=== PATIENT | female | born 1945 | race Caucasian/White ===

== ENCOUNTER → 2021-02-11 | Outpatient (CLI) | payer MEDICARE, OTHER ==
[~2021-02-11] MED LIST: CALC500T31 PO; CALTTAB6 PO; CYCL10TA3 PO; DILA100C PO; DULO1CAP4 PO; ERGO500029 PO; FAMO1TAB11 PO; FLUO20CA22 PO; FURO40TA2 PO; IRON27TA2 PO; LANS30CA PO; LEVO88TA3 PO; LIDO1DIS2 TD; LYRI75CA PO; MM S100C PO; MULTTAB4 PO; OXYC1TAB23 PO; OXYC5TAB2 PO; PANT40TA29 PO; PHEN32.4 PO; PHEN32.44 PO; REFR0.5D8 OP; REFR0.5D8 OU; ROPI1TAB3 PO; SUCR1TAB56 PO; SYNT100T PO; VIT250TA PO
== END ==
LOC: M LABSMTC 09:59
PROVIDERS: ATTEND Anesthesiology
DX: Z01.812 Encounter for preprocedural laboratory examination (principal)

== ENCOUNTER 2021-02-16 06:41 | Day surgery (SDC) | payer MEDICARE, OTHER ==
[~2021-02-16] VITALS: Ht 160 cm; Wt 104.8 kg
[~2021-02-16 06:41] MED LIST changes: +NS 1,000 ML IV ONE
[2021-02-16] MEDS ORDERED: propofoL 200 MG/20 ML VIAL As Ordered ONE (07:01)
[2021-02-16] MEDS ORDERED: LIDOCAINE 2% 100MG/5ML SDV (FOR ANES.) As Ordered ONE (07:01)
--- NOTE | 2021-02-16 07:50 | ROOR ---
Patient Name: Michelle Guerrero Procedure Date: 02/16/2021 7:34 AM Date of : 1945 Age: 75 Room: [facility] Gender: Female Note Status: Finalized Procedure: Upper Endoscopy + Biopsies Indications: Heartburn, Exclusion of Burroughs's esophagus Providers: Gerald Hawkins MD Referring MD: Wilda Paredes MD Requesting Provider: Medicines: Monitored Anesthesia Care Complications: No immediate complications. Procedure: Pre-Anesthesia Assessment: - The heart rate, respiratory rate, oxygen saturations, blood pressure, adequacy of pulmonary ventilation, and response to care were monitored throughout the procedure. The Endoscope was introduced through the mouth, and advanced to the second part of duodenum. The upper GI endoscopy was accomplished without difficulty. The patient tolerated the procedure well. Findings: The Z-line was variable and was found 40 cm from the incisors. Multiple biopsies were obtained with cold forceps for evaluation to rule out Burroughs's Esophagus randomly at the gastroesophageal junction. A small hiatal hernia was present. No other significant abnormalities were identified in a careful examination of the stomach. The exam of the duodenum was otherwise normal. Impression: - Z-line variable, 40 cm from the incisors. - Small hiatal hernia. - Multiple biopsies were obtained at the gastroesophageal junction. - The examination was otherwise normal. Recommendation: - Patient has a contact number available for emergencies. The signs and symptoms of potential delayed complications were discussed with the patient. Return to normal activities tomorrow. Written discharge instructions were provided to the patient. - High fiber diet. - Discharge patient to home. - Continue present medications. - Follow an antireflux regimen. - Await pathology results. - Telephone GI clinic for pathology results in 1 week. - Return to referring physician. - The findings and recommendations were discussed with the patient's family. Procedure Code(s): --- Professional --- 23162, Esophagogastroduodenoscopy, flexible, transoral; with biopsy, single or multiple Diagnosis Code(s): --- Professional --- K22.8, Other specified diseases of esophagus K44.9, Diaphragmatic hernia without obstruction or gangrene R12, Heartburn CPT copyright 2019 [employer]. All rights reserved. The codes documented in this report are preliminary and upon line rider review may be revised to meet current compliance requirements. Gerald Hawkins MD Gerald Hawkins MD 02/16/2021 7:49:30 AM Electronically signed by Gerald Hawkins MD Number of Addenda: 0 Note Initiated On: 02/16/2021 7:34 AM Estimated Blood Loss: Estimated blood loss: none.
[2021-02-16 08:13] VITALS: BP 158/78
== END 2021-02-16 08:16 | disposition home or self-care (01) ==
LOC: M OPP 06:41
PROVIDERS: ATTEND Internal Medicine Gastroenterology
DX: K22.8 Other specified diseases of esophagus (principal); K44.9 Diaphragmatic hernia without obstruction or gangrene; R12 Heartburn; Z79.891 Long term (current) use of opiate analgesic; Z79.899 Other long term (current) drug therapy

== ENCOUNTER 2025-04-10 09:23 | Inpatient (IN) | payer MEDICARE ==
[~2025-04-10] VITALS: Ht 162.6 cm; Wt 100.1 kg
[~2025-04-10 09:23] MED LIST changes: -CALC500T31 PO; +FLUO-365 PO; -FLUO20CA22 PO; -NS 1,000 ML IV ONE; +OYST500T16 PO; -ROPI1TAB3 PO; +ROPI1TAB73 PO
[2025-04-16] MEDS ORDERED: FUROSEMIDE 40 MG TAB PO PRN (12:05)
[2025-04-16] MEDS ORDERED: SIMETHICONE 80MG CHEW TAB PO PRN (12:15)
[2025-04-16] MEDS ORDERED: BISACODYL 10 MG SUPP PR PRN (12:15)
[2025-04-16] MEDS ORDERED: MOM 30 ML SUSPENSION UDC PO PRN (12:15)
[2025-04-16] MEDS ORDERED: MAALOX 30 ML SUSP *UDC PO PRN (12:15)
[2025-04-16] MEDS ORDERED: BISACODYL 5 MG TAB PO PRN (12:15)
[2025-04-16 14:29] VITALS: BP 156/67; TEMP 97; O2SAT 96
[2025-04-16] MEDS ORDERED: ATOR40TA75 PO (14:39)
[2025-04-16] MEDS ORDERED: ELIQ5TAB PO (14:39)
[2025-04-16] MEDS ORDERED: FERR1TAB8 PO (14:42)
[2025-04-16] MEDS ORDERED: PHEN30TA46 PO (14:42)
[2025-04-16] MEDS ORDERED: METO1TAB32 PO (14:43)
[2025-04-16] MEDS ORDERED: ROPI2TAB46 PO (14:47)
[2025-04-16] MEDS ORDERED: ENTR1TAB PO (14:47)
[2025-04-16] MEDS ORDERED: POTA-136 PO (14:49)
[2025-04-16] MEDS ORDERED: ACET1TAB55 PO (14:52)
[2025-04-16] MEDS ORDERED: TRAM50TA2 PO (14:54)
[2025-04-16] MEDS ORDERED: HOME MED LIST COMPLETE! XX SCH (15:00)
[2025-04-16] MEDS ORDERED: PHEN100C PO (16:10)
[2025-04-16] MEDS: PANTOPRAZOLE 40MG TAB PO SCH (17:05)
[2025-04-16] MEDS: traMADol 50 MG TAB PO PRN (17:06)
[2025-04-16 19:25] VITALS: BP 145/68; TEMP 97.5; O2SAT 87
[2025-04-16 19:32] VITALS: O2SAT 86
[2025-04-16 19:33] VITALS: O2SAT 93
[2025-04-16 21:00] VITALS: O2SAT 95
[2025-04-16] MEDS: PREGABALIN 75 MG CAP PO SCH (21:46)
[2025-04-16] MEDS: ENTRESTO 24-26 MG TABLET (SACUBITRIL/VALSARTAN) PO SCH (21:48)
[2025-04-16] MEDS: ATORVASTATIN 20 MG TAB PO SCH (21:48)
[2025-04-16] MEDS: OYSTER SHELL CALCIUM 500 MG TAB PO SCH (21:49)
[2025-04-16] MEDS: SUCRALFATE 1 GM TAB PO SCH (21:49)
[2025-04-16] MEDS: METOPROLOL SUCC. 25 MG *XL* TAB PO SCH (21:49)
[2025-04-16] MEDS: APIXABAN 5 MG TAB PO SCH (21:49)
[2025-04-16] MEDS: FAMOTIDINE 20 MG TAB PO SCH (21:49)
[2025-04-16] MEDS: PHENYTOIN ER 100 MG CAP PO SCH (21:50)
[2025-04-16] MEDS: POLYVINYL ALCOHOL OPHTH SOLN 15ML (LIQUITEARS) OU SCH (21:52)
[2025-04-16] MEDS: DICLOFENAC EPOLAMINE 1.3% PATCH TOP PRN (21:53)
[2025-04-16 22:26] VITALS: O2SAT 96
[2025-04-17 04:00] VITALS: BP 134/63; TEMP 97; O2SAT 96
[2025-04-17 06:20] VITALS: BP 138/63
[2025-04-17] MEDS: FUROSEMIDE 40 MG TAB PO SCH ×2 (06:25→09:32)
[2025-04-17] MEDS: LEVOTHYROXINE 88 MCG TABLET (0.088 MG) PO SCH (06:27)
[2025-04-17 08:27] LABS: BASO # 0.1 10^3/uL (0.0-0.2); BASO % 1.0 % (0.0-1.0); EOS # 0.1 10^3/uL (0.0-0.5); EOS % 1.6 % (0.0-3.0); LYMPH # 1.1 10^3/uL (1.5-5.0); LYMPH % 16.7 % (24.0-44.0); MONO # 0.4 10^3/uL (0.0-0.8); MONO % 6.1 % (2.0-8.0); NEUTROPHILS # 4.9 10^3/uL (1.5-8.5); NEUTROPHILS % 74.0 % (36.0-66.0); PLATELET COUNT, AUTOMATED 371 10^3/uL (150-450)
[2025-04-17 08:50] LABS: ALT/SGPT 17 U/L (7.0-40); AST/SGOT 31 U/L (<34); CALCIUM LEVEL 7.9 MG/DL (8.3-10.6); CARBON DIOXIDE LEVEL 35 MMOL/L (20-31); CHLORIDE LEVEL 99 MMOL/L (98-107); CREATININE FOR GFR 0.59 MG/DL (0.55-1.30); GLOMERULAR FILTRATION RATE > 90.0 (>39); POTASSIUM SERUM 4.3 MMOL/L (3.5-5.1); SODIUM LEVEL 145 MMOL/L (136-145)
[2025-04-17] MEDS ORDERED: POTASSIUM CHLORIDE 10MEQ SR TABLET PO SCH (09:00)
[2025-04-17] MEDS ORDERED: FUROSEMIDE 40 MG TAB PO SCH (09:00)
[2025-04-17] MEDS: DOCUSATE SODIUM 100 MG CAPSULE PO SCH (09:30)
[2025-04-17] MEDS: FERROUS GLUCONATE 324 MG TAB PO SCH (09:31)
[2025-04-17] MEDS: POTASSIUM CHLORIDE 10MEQ SR TABLET PO SCH (09:31)
[2025-04-17 12:08] VITALS: BP 148/63; TEMP 96.9; O2SAT 98
[2025-04-17] MEDS ORDERED: DEXTROSE 50% 50 ML SYRINGE IV PRN (13:50)
[2025-04-17] MEDS ORDERED: GLUCOSE 4 GM CHEW PO PRN (13:50)
[2025-04-17] MEDS ORDERED: GLUCAGON INJ 1 MG VIAL SC PRN (13:50)
[2025-04-17] MEDS: DICLOFENAC EPOLAMINE 1.3% PATCH TOP ONE (16:20)
[2025-04-17 20:00] VITALS: BP 127/58; TEMP 97.9; O2SAT 93
[2025-04-18 04:00] VITALS: BP 117/57; TEMP 97; O2SAT 93
[2025-04-18] MEDS: ACETAMINOPHEN 325 MG TAB PO PRN (07:43)
[2025-04-18] MEDS: POTASSIUM CHLORIDE 10MEQ SR TABLET PO SCH (09:18)
[2025-04-18] MEDS: DICLOFENAC EPOLAMINE 1.3% PATCH TOP SCH (09:19)
[2025-04-18 12:00] VITALS: BP 109/55; TEMP 97.1; O2SAT 96
[2025-04-18 20:00] VITALS: BP 130/58; TEMP 97.1; O2SAT 95
[2025-04-19 04:00] VITALS: BP 126/60; TEMP 97.5; O2SAT 95
[2025-04-19 06:25] LABS: CALCIUM LEVEL 8.0 MG/DL (8.3-10.6); CARBON DIOXIDE LEVEL 36.0 MMOL/L (20-31); CHLORIDE LEVEL 102.0 MMOL/L (98-107); CREATININE FOR GFR 0.67 MG/DL (0.55-1.30); GLOMERULAR FILTRATION RATE 89.4 (>39); POTASSIUM SERUM 3.8 MMOL/L (3.5-5.1); SODIUM LEVEL 146.0 MMOL/L (136-145)
[2025-04-19] MEDS: VITAMIN D 50,000 UNITS CAPSULE (ERGOCALCIFEROL 1.25MG) PO SCH (09:04)
[2025-04-19 09:10] VITALS: BP 130/60; O2SAT 98
[2025-04-19 12:00] VITALS: BP 121/58; TEMP 96.8; O2SAT 100
[2025-04-19 20:00] VITALS: BP 107/52; TEMP 97.8; O2SAT 97
[2025-04-20 04:00] VITALS: BP 113/55; TEMP 97.2; O2SAT 96
[2025-04-20 06:18] LABS: CALCIUM LEVEL 8.3 MG/DL (8.3-10.6); CARBON DIOXIDE LEVEL 34.0 MMOL/L (20-31); CHLORIDE LEVEL 102.0 MMOL/L (98-107); CREATININE FOR GFR 0.69 MG/DL (0.55-1.30); GLOMERULAR FILTRATION RATE 88.8 (>39); POTASSIUM SERUM 4.1 MMOL/L (3.5-5.1); SODIUM LEVEL 143.0 MMOL/L (136-145)
[2025-04-20 12:30] VITALS: BP 122/56; TEMP 97.9; O2SAT 95
[2025-04-20] MEDS ORDERED: ONDANSETRON 4MG ORAL DISINTEGRATING TAB PO PRN (13:40)
[2025-04-20 20:00] VITALS: BP 122/59; TEMP 97.4; O2SAT 96
[2025-04-21 04:00] VITALS: BP 114/54; TEMP 97.2; O2SAT 96
[2025-04-21 07:06] LABS: CALCIUM LEVEL 8.3 MG/DL (8.3-10.6); CARBON DIOXIDE LEVEL 36 MMOL/L (20-31); CHLORIDE LEVEL 103 MMOL/L (98-107); CREATININE FOR GFR 0.64 MG/DL (0.55-1.30); GLOMERULAR FILTRATION RATE > 90.0 (>39); POTASSIUM SERUM 4.4 MMOL/L (3.5-5.1); SODIUM LEVEL 146 MMOL/L (136-145)
[2025-04-21 12:00] VITALS: BP 119/58; TEMP 97.7; O2SAT 92
[2025-04-21 20:00] VITALS: BP 116/56; TEMP 98; O2SAT 94
[2025-04-22 04:00] VITALS: BP 137/62; TEMP 97; O2SAT 95
[2025-04-22 06:59] LABS: CALCIUM LEVEL 8.2 MG/DL (8.3-10.6); CARBON DIOXIDE LEVEL 34.0 MMOL/L (20-31); CHLORIDE LEVEL 103.0 MMOL/L (98-107); CREATININE FOR GFR 0.71 MG/DL (0.55-1.30); GLOMERULAR FILTRATION RATE 87.0 (>39); POTASSIUM SERUM 4.5 MMOL/L (3.5-5.1); SODIUM LEVEL 145.0 MMOL/L (136-145)
[2025-04-22 12:00] VITALS: BP 114/56; TEMP 96.4; O2SAT 92
[2025-04-22 20:00] VITALS: BP 115/59; TEMP 97.3; O2SAT 92
[2025-04-22 23:38] VITALS: O2SAT 92
[2025-04-23 04:00] VITALS: BP 114/61; TEMP 97.1; O2SAT 99
[2025-04-23 12:00] VITALS: BP 110/53; TEMP 97.4; O2SAT 93
[2025-04-23] MEDS ORDERED: ROPI2TAB46 PO (15:13)
[2025-04-23] MEDS ORDERED: FURO40TA2 PO (15:13)
[2025-04-23] MEDS ORDERED: ERGO500029 PO (15:13)
[2025-04-23] MEDS ORDERED: HYDR-3715 PO (15:13)
[2025-04-23] MEDS ORDERED: LYRI75CA PO (15:13)
[2025-04-23] MEDS ORDERED: PANT40TA29 PO (15:13)
[2025-04-23] MEDS ORDERED: ELIQ5TAB PO (15:13)
[2025-04-23] MEDS ORDERED: METO1TAB32 PO (15:13)
[2025-04-23] MEDS ORDERED: POTA-136 PO (15:13)
[2025-04-23] MEDS ORDERED: METO25TA PO (15:13)
[2025-04-23] MEDS ORDERED: ENTR1TAB PO (15:13)
[2025-04-23 20:00] VITALS: BP 118/57; TEMP 97.6; O2SAT 92
[2025-04-23 23:03] VITALS: O2SAT 92
[2025-04-24 04:00] VITALS: BP 114/53; TEMP 97; O2SAT 95
[2025-04-24 09:41] VITALS: BP 96/52; TEMP 97; O2SAT 92
[2025-04-24 11:56] VITALS: BP 104/54; TEMP 97.3; O2SAT 95
[2025-04-24] MEDS: FUROSEMIDE 40 MG TAB PO SCH (12:02)
[2025-04-24 20:00] VITALS: BP 112/60; TEMP 97; O2SAT 91
[2025-04-25 04:00] VITALS: BP 113/56; TEMP 97.7; O2SAT 98
[2025-04-25] MEDS: MYCOLOG CREAM 15GM (NYSTATIN/TRIAMCINOLONE) TOP PRN (08:30)
[2025-04-25 12:00] VITALS: BP 108/53; TEMP 98.1; O2SAT 93
[2025-04-25 20:17] VITALS: BP 107/54; TEMP 97.3; O2SAT 93
[2025-04-26 04:20] VITALS: BP 122/56; TEMP 97; O2SAT 97
[2025-04-26 05:50] VITALS: BP 106/58; TEMP 97.8; O2SAT 91
[2025-04-26 12:00] VITALS: BP 97/52; TEMP 97.7; O2SAT 94
[2025-04-26 20:25] VITALS: BP 125/65; TEMP 97.1; O2SAT 91
[2025-04-27 06:11] VITALS: BP 118/58; TEMP 97.3; O2SAT 91
[2025-04-27 09:14] VITALS: BP 100/55; O2SAT 93
[2025-04-27 12:00] VITALS: BP 120/58; TEMP 97.5; O2SAT 97
[2025-04-27 12:28] LABS: BASO # 0.1 10^3/uL (0.0-0.2); BASO % 1.3 % (0.0-1.0); EOS # 0.1 10^3/uL (0.0-0.5); EOS % 2.8 % (0.0-3.0); LYMPH # 1.4 10^3/uL (1.5-5.0); LYMPH % 30.0 % (24.0-44.0); MONO # 0.4 10^3/uL (0.0-0.8); MONO % 8.8 % (2.0-8.0); NEUTROPHILS # 2.6 10^3/uL (1.5-8.5); NEUTROPHILS % 56.9 % (36.0-66.0); PLATELET COUNT, AUTOMATED 217 10^3/uL (150-450)
[2025-04-27 13:00] LABS: CALCIUM LEVEL 8.3 MG/DL (8.3-10.6); CARBON DIOXIDE LEVEL 30.0 MMOL/L (20-31); CHLORIDE LEVEL 105.0 MMOL/L (98-107); CREATININE FOR GFR 0.68 MG/DL (0.55-1.30); GLOMERULAR FILTRATION RATE 89.1 (>39); MAGNESIUM LEVEL 1.7 MG/DL (1.8-2.4); POTASSIUM SERUM 4.2 MMOL/L (3.5-5.1); SODIUM LEVEL 146.0 MMOL/L (136-145)
[2025-04-27] MEDS: MAGNESIUM OXIDE 400 MG TAB PO ONE (14:38)
[2025-04-27 20:00] VITALS: BP 132/75; TEMP 97; O2SAT 94
[2025-04-27 21:40] VITALS: BP 137/62
[2025-04-28 04:00] VITALS: BP 113/56; TEMP 97; O2SAT 99
[2025-04-28] MEDS: MAGNESIUM OXIDE 400 MG TAB PO SCH (08:32)
[2025-04-28 08:34] VITALS: BP 92/55; O2SAT 94
[2025-04-28 12:00] VITALS: BP 115/56; TEMP 97.4; O2SAT 97
[2025-04-28 20:00] VITALS: BP 122/59; TEMP 97.4; O2SAT 95
[2025-04-28 22:00] VITALS: O2SAT 92
[2025-04-29 04:00] VITALS: BP 115/59; TEMP 97; O2SAT 91
[2025-04-29 06:00] VITALS: BP 115/59
[2025-04-29 09:32] VITALS: BP 116/60
[2025-04-29 12:00] VITALS: BP 126/58; TEMP 97.6; O2SAT 96
== END 2025-04-29 12:15 | disposition home or self-care (01) | DRG 91 ==
LOC: M PM&R 04-16 13:50
PROVIDERS: ADMIT Physical Medicine & Rehabilitation; ATTEND Physical Medicine & Rehabilitation
DX: G72.81 Critical illness myopathy (principal); G93.41 Metabolic encephalopathy; J96.01 Acute respiratory failure with hypoxia; J96.02 Acute respiratory failure with hypercapnia; I50.32 Chronic diastolic (congestive) heart failure; F32.A Depression, unspecified; K21.9 Gastro-esophageal reflux disease without esophagitis; I11.0 Hypertensive heart disease with heart failure; E66.9 Obesity, unspecified; G40.909 Epilepsy, unspecified, not intractable, without status epilepticus; G25.81 Restless legs syndrome; D50.9 Iron deficiency anemia, unspecified; M54.50 Low back pain, unspecified; G89.29 Other chronic pain; M51.86 Other intervertebral disc disorders, lumbar region; I45.10 Unspecified right bundle-branch block; I48.91 Unspecified atrial fibrillation; G43.909 Migraine, unspecified, not intractable, without status migrainosus; I95.1 Orthostatic hypotension; E83.42 Hypomagnesemia; E87.6 Hypokalemia; I27.20 Pulmonary hypertension, unspecified; E03.9 Hypothyroidism, unspecified; Z79.890 Hormone replacement therapy; Z66 Do not resuscitate; M54.2 Cervicalgia; R21 Rash and other nonspecific skin eruption; Z79.899 Other long term (current) drug therapy; Z88.8 Allergy status to other drugs, medicaments and biological substances; I25.2 Old myocardial infarction

== ENCOUNTER → 2025-05-20 | Outpatient (REF) | payer MEDICARE ==
[~2025-05-20] MED LIST changes: +ACET1TAB55 PO; +ATOR40TA75 PO; +ELIQ5TAB PO; +ENTR1TAB PO; +FERR1TAB8 PO; +HYDR-3715 PO; +METO1TAB32 PO; +METO25TA PO; +PHEN100C PO; +PHEN30TA46 PO; +POTA-136 PO; +ROPI2TAB46 PO; +TRAM50TA2 PO
[2025-05-20 16:19] LABS: CALCIUM LEVEL 8.2 MG/DL (8.3-10.6); CARBON DIOXIDE LEVEL 30 MMOL/L (20-31); CHLORIDE LEVEL 104 MMOL/L (98-107); CREATININE FOR GFR 0.62 MG/DL (0.55-1.30); GLOMERULAR FILTRATION RATE > 90.0 (>39); MAGNESIUM LEVEL 1.6 MG/DL (1.8-2.4); POTASSIUM SERUM 3.6 MMOL/L (3.5-5.1); SODIUM LEVEL 144 MMOL/L (136-145)
== END ==
LOC: M SHH 15:25
PROVIDERS: ATTEND Physical Medicine & Rehabilitation
DX: G93.41 Metabolic encephalopathy (principal)

== ENCOUNTER → 2025-05-21 | Outpatient (REF) | payer MEDICARE ==
[2025-05-21 15:47] LABS: ALT/SGPT < 9 U/L (7.0-40); AST/SGOT 16 U/L (<34); CALCIUM LEVEL 8.1 MG/DL (8.3-10.6); CARBON DIOXIDE LEVEL 33 MMOL/L (20-31); CHLORIDE LEVEL 103 MMOL/L (98-107); CREATININE FOR GFR 0.64 MG/DL (0.55-1.30); GLOMERULAR FILTRATION RATE > 90.0 (>39); MAGNESIUM LEVEL 1.7 MG/DL (1.8-2.4); POTASSIUM SERUM 3.4 MMOL/L (3.5-5.1); SODIUM LEVEL 146 MMOL/L (136-145)
== END ==
LOC: M SHH 12:25
PROVIDERS: ATTEND Family Medicine
DX: I48.91 Unspecified atrial fibrillation (principal); I21.4 Non-ST elevation (NSTEMI) myocardial infarction; I89.0 Lymphedema, not elsewhere classified; E83.42 Hypomagnesemia; I50.812 Chronic right heart failure

== ENCOUNTER → 2025-06-09 | Outpatient (REF) | payer MEDICARE ==
[2025-06-09 15:11] LABS: ALT/SGPT 10 U/L (7.0-40); AST/SGOT 15 U/L (<34); CALCIUM LEVEL 8.4 MG/DL (8.3-10.6); CARBON DIOXIDE LEVEL 30 MMOL/L (20-31); CHLORIDE LEVEL 104 MMOL/L (98-107); CREATININE FOR GFR 0.61 MG/DL (0.55-1.30); GLOMERULAR FILTRATION RATE > 90.0 (>39); POTASSIUM SERUM 3.2 MMOL/L (3.5-5.1); SODIUM LEVEL 145 MMOL/L (136-145)
== END ==
LOC: M LAB REF 13:54
PROVIDERS: ATTEND Family Medicine
DX: I21.4 Non-ST elevation (NSTEMI) myocardial infarction (principal); I51.7 Cardiomegaly; I50.9 Heart failure, unspecified